=== PATIENT | male | born 1940 | race Caucasian/White ===

== ENCOUNTER → 2017-06-09 | Outpatient (CLI) | payer OTHER ==
[~2017-06-09] MED LIST: ATIVAN0.5 MG PO; CELEXA10 MG PO
[2017-06-09 10:59] LABS: HEMATOCRIT 31.3 % (42.0-52.0); HEMOGLOBIN 9.9 gm/dL (14.0-18.0); MCH 18.9 pg (26.0-34.0); MCHC 31.6 g/dL (28.0-37.0); MCV 59.6 fL (80.0-100.0); RBC 5.24 mil/uL (4.50-6.00); RDW 19.7 % (10.5-14.5); WBC 10.4 thou/uL (4.0-11.0)
[2017-06-09 11:00] LABS: URINE BILIRUBIN NEGATIVE (Negative); URINE BLOOD NEGATIVE (Negative); URINE COLOR YELLOW; URINE GLUCOSE-RANDOM* NEGATIVE (Negative); URINE KETONES NEGATIVE (Negative); URINE NITRITE NEGATIVE (Negative); URINE PROTEIN (DIPSTICK) NEGATIVE (Negative); URINE SPECIFIC GRAVITY <= 1.005 (1.003-1.035); URINE UROBILINOGEN 0.2 E.U./dl (0.2-1.0)
[2017-06-09 11:14] LABS: ALBUMIN 3.7 g/dL (3.4-5.0); ALKALINE PHOSPHATASE 86 U/L (46-116); ANION GAP 7 mmol/L (7-16); BUN 13 mg/dL (7-18); CALCIUM 9.4 mg/dL (8.5-10.1); CHLORIDE 103 mmol/L (98-107); CHOLESTEROL 195 mg/dL (<200); CO2 28 mmol/L (21-32); DIRECT BILIRUBIN < 0.1 mg/dL (<0.1-0.3); GLUCOSE 83 mg/dL (74-106); HDL CHOLESTEROL 49 mg/dL (>40); LDL CHOLESTEROL 110 mg/dL (<100); POTASSIUM 4.7 mmol/L (3.5-5.1); SGOT 17 U/L (15-37); SGPT 19 U/L (30-65); SODIUM 138 mmol/L (136-145); TOTAL BILIRUBIN 0.2 mg/dL (<0.1-1.0); TOTAL PROTEIN 8.1 g/dL (6.4-8.2); TRIGLYCERIDE 183 mg/dL (<150); VLDL 37 mg/dL (<40)
== END ==
LOC: LABMALL 10:25
PROVIDERS: Internal Medicine
DX: C34.92 Malignant neoplasm of unspecified part of left bronchus or lung (principal)

== ENCOUNTER → 2018-12-15 | Outpatient (CLI) | payer OTHER | LOC: RAD 10:09 | DX: R06.02 Shortness of breath (principal); M47.814 Spondylosis without myelopathy or radiculopathy, thoracic region; Z90.2 Acquired absence of lung [part of] ==

== ENCOUNTER → 2019-01-04 | Outpatient (CLI) | payer OTHER | LOC: RAD 11:21 | DX: R06.02 Shortness of breath (principal) ==

== ENCOUNTER → 2020-01-03 | Outpatient (CLI) | payer OTHER | LOC: RAD 13:20 | DX: R05 Cough (principal) ==

== ENCOUNTER → 2020-07-20 | Outpatient (CLI) | payer OTHER | LOC: RAD 09:35 | PROVIDERS: ATTEND Internal Medicine Pulmonary Disease | DX: J98.4 Other disorders of lung (principal); J43.9 Emphysema, unspecified; R91.1 Solitary pulmonary nodule ==